=== PATIENT | male | born 1955 | race Caucasian/White ===

== ENCOUNTER 2019-07-17 09:02 | Emergency (ER) | payer BC, MEDICAID ==
[~2019-07-17] VITALS: Ht 182.9 cm; Wt 81.6 kg
[2019-07-17 09:05] VITALS: BP 172/68
[2019-07-17] MEDS ORDERED: KETOROLAC TROMETH 60MG/2ML VIAL IM ONE (10:45)
== END 2019-07-17 11:18 | disposition home or self-care (01) ==
LOC: ER 09:02 → EDBD 09:02 → ER 11:17
DX: S82.831A Other fracture of upper and lower end of right fibula, initial encounter for closed fracture (principal); S61.432A Puncture wound without foreign body of left hand, initial encounter; W19.XXXA Unspecified fall, initial encounter; Y93.89 Activity, other specified; Y92.89 Other specified places as the place of occurrence of the external cause; Y99.8 Other external cause status
CPT/HCPCS: 29515; 73590; 93005; 96372; 99283; J1885